=== PATIENT | female | born 1970 | race Two or more races ===

== ENCOUNTER 2023-08-20 12:04 | Emergency (ER) | payer OTHER ==
[~2023-08-20] VITALS: Ht 160 cm; Wt 47.6 kg
[~2023-08-20 12:04] MED LIST: BUDEO.25 IH; TUSSIONEX PENNKI5 ML PO
[2023-08-20 14:14] LABS: HEMATOCRIT 39.4 % (36.0-45.00); HEMOGLOBIN 13.7 g/dL (12.0-15.00); MEAN CELL VOLUME 87.5 fL (80.00-100.00); MEAN CORPUSCULAR HEMOGLOBIN 30.5 pg (27.00-32.0); MEAN CORPUSCULAR HGB CONC 34.8 g/dl (32.0-36.0); PLATELET COUNT 251 K/uL (150-450); RED CELL DISTRIBUTION WIDTH 13.9 % (11.5-14.5)
== END 2023-08-20 15:50 | disposition home or self-care (01) ==
LOC: ER 12:05
PROVIDERS: General Practice
DX: J45.909 Unspecified asthma, uncomplicated (principal); R05.9 Cough, unspecified; Z20.822 Contact with and (suspected) exposure to COVID-19

== ENCOUNTER 2023-08-23 20:22 | Inpatient (IN) | payer OTHER ==
[~2023-08-23] VITALS: Ht 152.4 cm; Wt 61.2 kg
[2023-08-23 22:49] LABS: ABG PH 7.486 (7.35-7.45); ABG PO2 92.1 mmHg (80-100); ABG pCO2 35.5 mmHg (35-45); BASE EXCESS 3.1 mmol/l; BICARBONATE 26.2 mmol/l (23-25); SaO2 97.8 %; Tco2 27.3 mmol/l; allen test SATISFACTORY; o2 21 %; puncture site RADIAL RIGHT
[2023-08-23 23:41] LABS: HEMATOCRIT 41.1 % (36.0-45.00); HEMOGLOBIN 14.4 g/dL (12.0-15.00); MEAN CELL VOLUME 86.9 fL (80.00-100.00); MEAN CORPUSCULAR HEMOGLOBIN 30.4 pg (27.00-32.0); PLATELET COUNT 373 K/uL (150-450); RED BLOOD COUNT 4.73 M/uL (4.00-6.00); RED CELL DISTRIBUTION WIDTH 13.2 % (11.5-14.5)
[2023-08-24 00:02] LABS: BILIRUBIN TOTAL 0.57 mg/dL (0.3-1.2); CALCIUM 9.6 mg/dL (8.5-10.1); CREATININE SERUM 0.61 mg/dL (0.55-1.02); GFR 102.99; GLOBULINA 3.9 G/DL (2.4-3.5); POTASSIUM 3.69 mEq/L (3.5-5.1); TOTAL PROTEIN 7.9 gm/dL (6.4-8.2)
[2023-08-28 19:27] LABS: HEMATOCRIT 41.2 % (36.0-45.00); MEAN CORPUSCULAR HEMOGLOBIN 29.8 pg (27.00-32.0); MEAN CORPUSCULAR HGB CONC 33.9 g/dl (32.0-36.0); PLATELET COUNT 432 K/uL (150-450); RED BLOOD COUNT 4.68 M/uL (4.00-6.00); RED CELL DISTRIBUTION WIDTH 13.4 % (11.5-14.5)
[2023-08-28 19:57] LABS: ALBUMIN 3.2 gm/dL (3.4-5.0); BILIRUBIN TOTAL 0.47 mg/dL (0.3-1.2); CALCIUM 9.3 mg/dL (8.5-10.1); CREATININE SERUM 0.74 mg/dL (0.55-1.02); GFR 82.41; GLOBULINA 3.2 G/DL (2.4-3.5); POTASSIUM 3.87 mEq/L (3.5-5.1); TOTAL PROTEIN 6.4 gm/dL (6.4-8.2)
[2023-08-29 07:13] LABS: ALBUMIN 3.1 gm/dL (3.4-5.0); ALKALINE PHOSPHATASE 54 U/L (50-136); ALT/SGPT 33 U/L (12-78); ANION GAP 12 (10.0-20.0); AST/SGOT 10 U/L (15-37); BILIRUBIN TOTAL 0.61 mg/dL (0.3-1.2); BLOOD UREA NITROGEN 18 mg/dL (7-18); BUN CREA RATIO 31 (7.0-25.0); CALCIUM 9.5 mg/dL (8.5-10.1); CARBON DIOXIDE 28 mEq/L (21-32); CHLORIDE 103 mmol/L (98-107); CREATININE SERUM 0.58 mg/dL (0.55-1.02); GFR 109.17; GLOBULINA 3.2 G/DL (2.4-3.5); GLUCOSE FASTING 142 mg/dL (65-100); HEMATOCRIT 40.7 % (36.0-45.00); HEMOGLOBIN 13.8 g/dL (12.0-15.00); LDH 158 U/L (84-246); MEAN CELL VOLUME 89.3 fL (80.00-100.00); MEAN CORPUSCULAR HEMOGLOBIN 30.3 pg (27.00-32.0); OSMOLALITY SERUM 282 MOSM/KG (275-295); PHOSPHOROUS 3.9 mg/dL (2.5-4.9); PLATELET COUNT 420 K/uL (150-450); POTASSIUM 4.17 mEq/L (3.5-5.1); RED BLOOD COUNT 4.56 M/uL (4.00-6.00); RED CELL DISTRIBUTION WIDTH 13.1 % (11.5-14.5); SODIUM 139 mmol/L (136-145); TOTAL PROTEIN 6.3 gm/dL (6.4-8.2)
[2023-08-29 07:18] LABS: C-REACTIVE PROTEIN < 0.29 MG/DL (0.00-0.29)
== END 2023-08-31 13:51 | disposition home or self-care (01) | DRG 203 ==
LOC: ER 20:23 → MEDJ 08-24 13:29
PROVIDERS: Emergency Medicine; Internal Medicine Infectious Disease; ADMIT Internal Medicine; ATTEND Internal Medicine
PROC: BB24ZZZ Computerized Tomography (CT Scan) of Bilateral Lungs (ICD-10-PCS; principal; 2023-08-23)
PROC: 3E0F7GC Introduction of Other Therapeutic Substance into Respiratory Tract, Via Natural or Artificial Opening (ICD-10-PCS; 2023-08-24)
DX: J45.41 Moderate persistent asthma with (acute) exacerbation (principal); D72.828 Other elevated white blood cell count